=== PATIENT | male | born 1960 | race Caucasian/White ===

== ENCOUNTER → 2016-11-10 | Outpatient (CLI) | payer OTHER ==
--- NOTE | 2016-11-10 17:30 | REP ---
Clinical: Pain. Technique: AP, lateral, bilateral oblique and sunrise views of the right knee. Findings: Significant anterior and prepatellar soft tissue swelling is appreciated. No acute fracture or dislocation is identified. No obvious joint effusion noted. Osseous structures demonstrate mild age-related degenerative changes. Impression: Significant anterior and prepatellar soft tissue swelling. No acute fracture or dislocation. Signed by Ramin Choi MD 11/10/2016 05:20 P
== END ==
LOC: M WUC 17:03
PROVIDERS: ATTEND Physician Assistant
DX: M25.561 Pain in right knee (principal)

== ENCOUNTER → 2020-10-22 | Outpatient (CLI) | payer OTHER ==
--- NOTE | 2020-10-24 07:50 | REP ---
INDICATION: PAIN IN RT KNEE COMPARISON: 11/10/2016 TECHNIQUE: AP, lateral, bilateral oblique and sunrise views. FINDINGS: Relatively mild and essentially stable degenerative changes consistent with the patient's age. Findings include increased sclerosis along the tibial plateau with minimal medial joint space narrowing. [place] view demonstrates increased sclerosis along the anterior margin of the patella with relatively normal patellofemoral joint space. There appears to be mild to moderate prepatellar soft tissue swelling. No acute fracture. No obvious effusion. IMPRESSION: Relatively mild age related degenerative changes similar to 2017. <Electronically signed by Ramin Choi > 10/24/20 [id number]
== END ==
LOC: M WUC 15:21
PROVIDERS: ATTEND Physician Assistant
DX: M25.561 Pain in right knee (principal)